=== PATIENT | male | born 1940 | race Caucasian/White ===

== ENCOUNTER 2017-02-27 11:49 | Emergency (ER) | payer MEDICARE, BC ==
[2017-02-27 11:59] LABS: Hematocrit 38.1 % (42.0-52.0); Hemoglobin 13.1 gm/dL (13.5-18.0); Mean Cell Volume 85.6 fl (78-100); Mean Corpuscular Hemoglobin 29.4 pg (27-31); Mean Corpuscular Hgb Conc 34.4 g/dl (32-36); Mean Platelet Volume 11.5 fl (6.0-9.5); Neutrophil # 9.2 K/mm3 (1.3-6.0); Neutrophil % 91.6 % (42-75.0); Platelet Count 143 K/mm3 (150-450); Red Blood Count 4.45 M/mm3 (4.7-6.0); Red Cell Distribution Width 12.1 % (11.5-14.0); White Blood Count 10.1 K/mm3 (4.0-10.5)
--- NOTE | 2017-02-27 12:13 | ERNOTE ---
Chest Pain/Cardiac HPI Chief Complaint: Chest Pain Time Seen by Provider: 02/27/17 11:54 Source: patient Exam Limitations: no limitations Immunizations: IMMUNIZATION HX Immunizations Up to Date Yes History of Influenza Vaccine Yes Hx Pneumococcal Vaccination Yes Allergies/Adverse Reactions: Allergies No Known Allergies Allergy (Unverified 02/27/17 11:56) Home Medications: HOME MEDICATIONS Aspirin 81 mg PO DAILY 02/27/17 [Last Taken Unknown] Azithromycin [Zithromax] 250 mg PO DAILY #6 tablet 02/27/17 [Last Taken Unknown] PARoxetine HCL [Paroxetine HCl] 20 mg PO DAILY 02/27/17 [Last Taken Unknown] Simvastatin 40 mg PO DAILY 02/27/17 [Last Taken Unknown] metFORMIN HCL [Metformin HCl] 500 mg PO DAILY #30 tablet 02/27/17 [Last Taken Unknown] Narrative: Patient's chief complaint is actually not chest pain and he does not have any diaphoresis short of breath, neither does he have any neck arm or jaw pain. He does have however is a low-grade fever and chills. Onset of symptoms was this morning. Timing: constant Severity/Quality: mild Aspirin Treatment Today: 81 mg x 4, provided by EMS Associated Symptoms: Present: fever/chills Review of Systems - Review of Systems Constitutional: Present: See HPI, chills EYE: Present: no symptoms reported ENT: Present: no symptoms reported Respiratory: Present: no symptoms reported Cardiology: Present: no symptoms reported Gastrointestinal/Abdominal: Present: no symptoms reported Genitourinary: Present: no symptoms reported Musculoskeletal: Present: no symptoms reported Skin: Present: no symptoms reported Neurological: Present: no symptoms reported Endocrine: Present: no symptoms reported Hematologic/Lymphatic: Present: no symptoms reported Psych: Present: no symptoms reported - Patient's Past Medical History Patient History - Medical: No pertinent hx Patient History - Cardiac/Respiratory: Hyperlipidemia Patient History - Cancer: No Hx of Cancer Patient History - Surgical Procedures: No surgical history Patient History - Other: None - Social History Living Situations: home Psych History: No pertinent hx Smoking Status: Light tobacco smoker Alcohol Use: none Drug Use: none - Immunizations Immunizations Up to Date: Yes Hx Pneumococcal Vaccination: Yes History of Influenza Vaccine: Yes Physical Exam - Physical Exam General Appearance: Present: wd/wn, alert, no apparent distress Head Exam: Present: normal inspection, no evidence of injury Eye Exam: Normal inspection: bilateral, PERRL: bilateral Ears, Nose, Throat: Present: normal ENT inspection, H, normal pharynx Neck: Present: normal inspection, nontender Respiratory: Present: no respiratory distress, normal breath sounds, no accessory muscle use, chest nontender, lungs clear Cardiovascular/Chest: Present: regular rate, rhythm, no murmur, normal peripheral pulses Gastrointestinal/Abdominal: Present: normal bowel sounds, nontender, nondistended, soft, no organomegaly Rectal Exam: Present: deferred Back Exam: Present: normal inspection, normal range of motion Extremity Exam: Present: normal inspection, non-tender, no edema, normal range of motion Neurological Exam: Present: alert, oriented, normal mood/affect Skin Exam: Present: normal color, warm/dry Lymphatic Exam: Present: no adenopathy ED Progress - Results and Orders Patient's Lab Results:: I have reviewed the patient's lab results. - Vital Signs Patient's Vital Signs:: I have reviewed the patient's vital signs. Vital Signs: Vital Signs 02/27/17 02/27/17 11:51 11:57 Temperature 38.4 C H Pulse Rate 101 H 91 Respiratory 17 13 Rate Blood Pressure 174/74 174/74 O2 Sat by Pulse 100 100 Oximetry - EKG EKG: RBBB, other - patient has some curious both ST elevation and ST depression however he also has right bundle branch block, hematemesis or myocardial infarction however as he has no accompanying symptomatology to go with it. EKG read: Reviewed by me - X-Ray X-Ray #1 X-Ray: chest Interpretation: Reviewed by me - Progress/Reassessment Chief Complaint: Chest Pain Progress:: Improved Progress Note-Subjective: 02/27/17 15:34 Patient continues to deny any chest pain, shortness of breath, diaphoresis, neck or arm or jaw pain. Patient states that he would prefer to go home and follow-up with his family doctor on Wednesday. His EKG continues to reveal a right bundle-branch block, and his troponin while infinitesimally mildly elevated continues to remain in the negative range. Plan - Plan Plan: Patient appears to have an upper respiratory infection, as well as undiagnosed diabetes. We'll start patient on a Z-Ivan as well as 500 mg of metformin daily and he will follow-up with his family physician this week. We discussed admission and he declined, but he does understand that he needs to arrange for an outpatient stress test. Departure Clinical Impression: Hyperglycemia Upper respiratory infection Qualifiers: URI type: unspecified URI Qualified Code(s): J06.9 - Acute upper respiratory infection, unspecified - Departure Disposition: Home self-care Condition: Good Instructions: Upper Respiratory Infection, Adult, [id number], Hyperglycemia, [id number] Additional Instructions: Discussed a cardiology referral with your family doctor this week Prescriptions: Azithromycin [Zithromax] 250 mg PO DAILY #6 tablet metFORMIN HCL [Metformin HCl] 500 mg PO DAILY #30 tablet
[2017-02-27 12:20] LABS: ALT 18 U/L (19-67); AST 23 U/L (0-48); Albumin * 3.2 gm/dl (3.4-5.0); Alkaline Phosphatase * 80 U/L (50-170); Anion Gap 17.4 mmol/L (6.8-13.8); BUN/Creatinine Ratio 8.1 (9.0-21.6); Bilirubin, Total 0.5 mg/dL (0.0-1.1); Blood Urea Nitrogen 11 mg/dL (6-23); Ca. Corrected For Albumin 8.6 mg/dL (8.4-10.2); Calcium * 8.3 mg/dL (7.9-10.9); Chloride 102 mmol/L (97-106); Glucose * 287 mg/dL (70-110); Potassium 4.4 mmol/L (3.4-4.6); Sodium 136 mmol/L (132-142); Total Protein 7.4 gm/dL (6.2-8.2); Troponin I Less than 0.017 ng/ml (0.00-0.10)
[2017-02-27] MEDS ORDERED: ACETAMINOPHEN 500 MG TABLET PO ONE (12:26)
[2017-02-27 12:35] LABS: Urine Appearance Clear; Urine Bilirubin Negative (NEGATIVE); Urine Blood Negative /ul (NEGATIVE); Urine Color Yellow; Urine Ketone 5 mg/dL (NEGATIVE)
[2017-02-27 12:36] LABS: Urine Bacteria None Seen; Urine Nitrite Negative (NEGATIVE); Urine Protein Negative (NEGATIVE); Urine RBC None Seen /hpf (0-5); Urine Specific Gravity 1.025 SP.GR. (1.005-1.030); Urine Urobilinogen Normal (NORMAL); Urine WBC None Seen /hpf (0-5); Urine pH 5.5 pH (5.0-7.0)
[2017-02-27 15:38] VITALS: BP 131/60
== END 2017-02-27 15:45 | disposition home or self-care (01) ==
LOC: ER 11:49
DX: J06.9 Acute upper respiratory infection, unspecified (principal); R73.9 Hyperglycemia, unspecified; F17.200 Nicotine dependence, unspecified, uncomplicated; E78.5 Hyperlipidemia, unspecified